=== PATIENT | female | born 1960 | race African-American/Black ===

== ENCOUNTER 2017-02-26 10:42 | Emergency (ER) | payer MEDICARE, MEDICAID ==
[~2017-02-26] VITALS: Ht 165.1 cm; Wt 67.0 kg
[~2017-02-26 10:42] MED LIST: AMLO10TA80 PO; AMLO5TAB4 PO; ASPI-986 PO; ATOR20TA65 PO; DICL100G5 TP; HYDR-519 PO; LIDO35.44 TP; LOSA1TAB33 PO; TOPI25TA7 PO; lipitor
[2017-02-26 11:21] LABS: BASOPHILS % 0.6 % (0.0-2.0); EOSINOPHILS % 0.5 % (0.0-5.0); HEMATOCRIT. 37.2 % (36.0-48.0); HEMOGLOBIN. 12.6 g/dL (12.0-16.0); LYMPHOCYTES % 30.3 % (20.0-50.0); MEAN CORPUSCULAR VOLUME 91.5 fL (81.0-99.0); MEAN PLATELET VOLUME 9.1 fl (7.4-10.4); MONOCYTES % 8.8 % (2.0-8.0); NEUTROPHILS % 59.8 % (40.0-76.0); PLATELET 180 x1000/uL (130-400); RED BLOOD CELL COUNT 4.07 mill/uL (4.2-5.4); RED CELL DISTRIBUTION WIDTH 12.8 % (11.6-14.6)
[2017-02-26 11:29] LABS: PROTHROMBIN TIME 10.5 sec
[2017-02-26 11:38] LABS: CARBON DIOXIDE 27 mEq/L (21-32); CHLORIDE 109 mEq/L (98-107); ETHANOL BLOOD < 10 mg/dL; TROPONIN I < 0.02 ng/mL (0.00-0.04)
[2017-02-26] MEDS ORDERED: ASPIRIN 325MG TABLET PO ONE (13:00)
[2017-02-26 14:00] VITALS: BP 144/91
== END 2017-02-26 14:27 | disposition left against medical advice (07) ==
LOC: ER 11:39 → EDBEDREQSVC 13:29 → EDBEDREQ 13:29 → ER 14:27 → CANBEDREQ 17:13
DX: I63.9 Cerebral infarction, unspecified (principal); I10 Essential (primary) hypertension; Z86.73 Personal history of transient ischemic attack (TIA), and cerebral infarction without residual deficits
CPT/HCPCS: 36415; 70450; 71010; 80053; 84484; 85025; 85610; 93005; 99285; G0482

== ENCOUNTER 2018-09-30 12:05 | Emergency (ER) | payer MEDICARE, MEDICAID ==
[~2018-09-30] VITALS: Ht 162.6 cm; Wt 69.0 kg
[~2018-09-30 12:05] MED LIST changes: +DICL100G16 TP; -DICL100G5 TP; -LOSA1TAB33 PO; +LOSA1TAB40 PO; +TOPA25 PO; -TOPI25TA7 PO
[2018-09-30 12:24] VITALS: BP 153/80
== END 2018-09-30 17:44 | disposition left against medical advice (07) ==
LOC: ER 13:51
DX: R51 Headache (principal); Z53.21 Procedure and treatment not carried out due to patient leaving prior to being seen by health care provider
CPT/HCPCS: 82962

== ENCOUNTER 2021-07-22 19:59 | Emergency (ER) | payer MEDICARE, MEDICAID ==
[~2021-07-22] VITALS: Ht 165.1 cm; Wt 75.0 kg
[2021-07-22 20:10] VITALS: BP 117/84
== END 2021-07-22 22:24 | disposition left against medical advice (07) ==
LOC: ER 19:59
DX: Z53.21 Procedure and treatment not carried out due to patient leaving prior to being seen by health care provider (principal); R56.9 Unspecified convulsions; Z86.73 Personal history of transient ischemic attack (TIA), and cerebral infarction without residual deficits
CPT/HCPCS: 93005

== ENCOUNTER 2022-12-31 02:47 | Emergency (ER) | payer MEDICARE, MEDICAID ==
[~2022-12-31] VITALS: Ht 165.1 cm; Wt 68.0 kg
[~2022-12-31 02:47] MED LIST changes: +LIDO35.421 TP; -LIDO35.44 TP
[2022-12-31] MEDS ORDERED: ASPIRIN 81MG TABLET PO ONE (03:45)
[2022-12-31] MEDS ORDERED: ENALAPRIL 2.5MG/2ML VIAL 2ML IV ONE (03:45)
[2022-12-31] MEDS ORDERED: ENALAPRIL 1.25MG/ML VIAL 1ML IV NR ×2 (04:00→04:30)
[2022-12-31 05:27] LABS: BASOPHILS % 0.6 % (0.0-2.0); EOSINOPHILS % 0.4 % (0.0-5.0); HEMATOCRIT. 41.7 % (36.0-48.0); HEMOGLOBIN. 13.7 g/dL (12.0-16.0); LYMPHOCYTES % 26.1 % (20.0-50.0); MEAN CORPUSCULAR HEMOGLOBIN 30.9 pg (28.0-32.0); MEAN CORPUSCULAR VOLUME 94.3 fL (81.0-99.0); MEAN PLATELET VOLUME 9.5 fl (7.4-10.4); MONOCYTES % 7.9 % (2.0-8.0); PLATELET 253 x1000/uL (130-400); RED BLOOD CELL COUNT 4.42 mill/uL (4.2-5.4); RED CELL DISTRIBUTION WIDTH 13.3 % (11.6-14.6)
[2022-12-31] MEDS ORDERED: LOSA1TAB40 MT (05:56)
[2022-12-31 07:54] VITALS: BP 160/92
== END 2022-12-31 08:00 | disposition left against medical advice (07) ==
LOC: ER 02:47
DX: R51.9 Headache, unspecified (principal); R42 Dizziness and giddiness; I10 Essential (primary) hypertension; Z79.899 Other long term (current) drug therapy; Z86.73 Personal history of transient ischemic attack (TIA), and cerebral infarction without residual deficits; Z86.59 Personal history of other mental and behavioral disorders; Z79.82 Long term (current) use of aspirin
CPT/HCPCS: 36415; 71045; 85025; 93005; 99285; J3490

== ENCOUNTER 2024-05-07 15:50 | Emergency (ER) | payer MEDICARE, MEDICAID ==
[~2024-05-07] VITALS: Ht 165.1 cm; Wt 71.0 kg
[~2024-05-07 15:50] MED LIST changes: +LOSA1TAB40 MT
[2024-05-07 16:00] VITALS: BP 210/116; PULSE 72; RESP 16; TEMP 98.3; O2SAT 97
== END 2024-05-07 22:05 | disposition left against medical advice (07) ==
LOC: ER 15:50
DX: F41.0 Panic disorder [episodic paroxysmal anxiety] (principal); I10 Essential (primary) hypertension; Z53.21 Procedure and treatment not carried out due to patient leaving prior to being seen by health care provider; Z86.59 Personal history of other mental and behavioral disorders; Z86.73 Personal history of transient ischemic attack (TIA), and cerebral infarction without residual deficits

== ENCOUNTER 2024-10-21 16:33 | Emergency (ER) | payer MEDICARE, MEDICAID ==
[~2024-10-21] VITALS: Ht 162.6 cm; Wt 69.0 kg
[~2024-10-21 16:33] MED LIST changes: -AMLO5TAB4 PO; +AMLO5TAB5 PO
[2024-10-21 16:34] VITALS: PULSE 105; O2SAT 100
[2024-10-21 16:47] VITALS: BP 164/83; RESP 16; TEMP 36.7; O2SAT 100
[2024-10-21 17:14] LABS: BASOPHILS % 0.8 % (0.0-2.0); EOSINOPHILS % 0.6 % (0.0-5.0); HEMATOCRIT. 39.8 % (36.0-48.0); HEMOGLOBIN. 13.2 g/dL (12.0-16.0); LYMPHOCYTES % 28.6 % (20.0-50.0); MEAN CORPUSCULAR HEMOGLOBIN 31.3 pg (28.0-32.0); MEAN CORPUSCULAR HGB CONC 33.1 g/dL (31.0-37.0); MEAN CORPUSCULAR VOLUME 94.7 fL (81.0-99.0); MEAN PLATELET VOLUME 8.8 fl (7.4-10.4); MONOCYTES % 6.1 % (2.0-8.0); NEUTROPHILS % 63.9 % (40.0-76.0); PLATELET 244 x1000/uL (130-400); RED CELL DISTRIBUTION WIDTH 13.5 % (11.6-14.6); WHITE BLOOD COUNT 6.7 x1000/uL (4.5-11.0)
[2024-10-21 17:17] LABS: CHLORIDE 106 mEq/L (98-107); SODIUM 140 mEq/L (136-145)
[2024-10-21 17:18] LABS: CALCIUM 10.2 mg/dL (8.7-10.4); CARBON DIOXIDE 27 mEq/L (21-32)
[2024-10-21 17:23] LABS: GLUCOSE 132 mg/dL (70-105); UREA NITROGEN BLOOD 15 mg/dL (9-23)
[2024-10-21 17:24] LABS: TROPONIN I HIGH SENSITIVITY 13 ng/L (3.0-34)
== END 2024-10-21 19:03 | disposition left against medical advice (07) ==
LOC: ER 16:33
DX: R07.89 Other chest pain (principal); Z53.21 Procedure and treatment not carried out due to patient leaving prior to being seen by health care provider
CPT/HCPCS: 36415; 71045; 80048; 84484; 85025; 93005